=== PATIENT | male | born 1975 | race Caucasian/White ===

== ENCOUNTER 2017-10-04 17:22 | Emergency (ER) | payer MEDICAID ==
--- NOTE | 2017-10-04 19:25 | EDM.PDOC ---
ED HPI GENERAL MEDICAL PROBLEM - General Chief Complaint: Upper Extremity Injury/Pain Stated Complaint: LEFT ELBOW EDEMA/PAIN Time Seen by Provider: 10/04/17 19:45 Source of Information: Reports: Patient, Family History Limitations: Reports: No Limitations - History of Present Illness INITIAL COMMENTS - FREE TEXT/NARRATIVE: pt was not doing anything different today but he suddenly noticed a markedly swollen left bursa on the elebow. It did look slighly red. Onset: Sudden, Other ( It happened over a period of hours. ) Duration: Hour(s): Location: Reports: Upper Extremity, Left Associated Symptoms: Reports: No Other Symptoms Left Elbow Pain Score (Numeric/FACES): 5 - Related Data Allergies Allergy/AdvReac Type Severity Reaction Status Date / Time No Known Allergies Allergy Verified 10/04/17 18:28 Home Meds: Home Meds traMADol [Ultram] 50 mg PO DAILY 10/09/13 [History] Past Medical History - Past Surgical History HEENT Surgical History: Reports: Tonsillectomy Musculoskeletal Surgical History: Reports: Hip Replacement Social & Family History - Tobacco Use Smoking Status *Q: Current Some Day Smoker Years of Tobacco use: 25 Packs/Tins Daily: 0 Used Tobacco, but Quit: No Second Hand Smoke Exposure: Yes - Recreational Drug Use Recreational Drug Use: No Review of Systems - Review of Systems Review Of Systems: See Below Constitutional: Reports: No Symptoms Eyes: Reports: No Symptoms Ears: Reports: No Symptoms Nose: Reports: No Symptoms Mouth/Throat: Reports: No Symptoms Respiratory: Reports: No Symptoms Cardiovascular: Reports: No Symptoms GI/Abdominal: Reports: No Symptoms Musculoskeletal: Reports: Other ( swelling of the left elebow. This is an enlarged bursa. ) Skin: Reports: No Symptoms Neurological: Reports: No Symptoms Psychiatric: Reports: No Symptoms ED EXAM, GENERAL - Physical Exam Exam: See Below Free Text/Narrative:: Pt has a swelling of the left elebow which is mildly redened. Exam Limited By: No Limitations General Appearance: Alert, Anxious Extremities: Other ( left elebow has a swollen bursa which is mildly redened. This is not significasntly painful) Psychiatric: Normal Affect Course - Vital Signs Last Recorded V/S: Last Vital Signs Temp 36.4 C 10/04/17 18:26 Pulse 97 10/04/17 18:26 Resp 18 10/04/17 18:26 BP 145/87 H 10/04/17 18:26 Pulse Ox 100 10/04/17 18:26 Departure - Departure Time of Disposition: 19:19 Disposition: Home, Self-Care 01 Condition: Fair Clinical Impression: Effusion of bursa of left elbow - Discharge Information Instructions: Elbow Bursitis, [id number] Referrals: PCP,None [Primary Care Provider] - Forms: ED Department Discharge Care Plan Goals: warm pack to the area followed by a cool pack, motrin 600mg tid, keflex 500mg tid, ortho appt in 1 week.
== END 2017-10-04 19:45 | disposition home or self-care (01) ==
LOC: JP.ED 17:22
DX: M25.422 Effusion, left elbow (principal); F17.210 Nicotine dependence, cigarettes, uncomplicated; Z79.899 Other long term (current) drug therapy
CPT/HCPCS: 99283